=== PATIENT | female | born 1995 | race Caucasian/White ===

== ENCOUNTER 2016-12-06 17:24 | Emergency (ER) | payer BC, OTHER ==
[2016-12-06 17:39] VITALS: BP 130/72
--- NOTE | 2016-12-06 17:54 | UC ---
UC General HPI - HPI Summary HPI Summary: complaint of rash on the inside of her thighs that started approx 2 weeks they have worsened since then more painful and filled with pus draining them left nipple peircing has been more painful and leaking pus this morning denies fever , dyuria , vaginal discharge - History of Current Complaint Chief Complaint: UCSkin Stated Complaint: SKIN CONCERN Time Seen by Provider: 12/06/16 17:46 Hx Obtained From: Patient - Allergy/Home Medications Allergies/Adverse Reactions: Allergies Allergy/AdvReac Type Severity Reaction Status Date / Time Bee Venom Allergy Anaphylatic Verified 12/06/16 17:39 Shock PMH/Surg Hx/FS Hx/Imm Hx Previously Healthy: Yes - Surgical History Surgical History: Yes Surgery Procedure, Year, and Place: &A, 2000 - Family History Known Family History: Negative: Cardiac Disease, Hypertension, Diabetes - Social History Occupation: Student Alcohol Use: Occasionally Substance Use Type: None Smoking Status (MU): Never Smoked Tobacco Review of Systems Constitutional: Negative Skin: Rash Eyes: Negative ENT: Negative Respiratory: Negative Cardiovascular: Negative Gastrointestinal: Negative Genitourinary: Negative Motor: Negative Neurovascular: Negative Musculoskeletal: Negative Neurological: Negative Psychological: Negative All Other Systems Reviewed And Are Negative: Yes Physical Exam Triage Information Reviewed: Yes Appearance: No Pain Distress, Well-Nourished, Obese Vital Signs: Initial Vital Signs Temp 98.9 F 12/06/16 17:30 Pulse 87 12/06/16 17:30 Resp 16 12/06/16 17:30 BP 130/72 12/06/16 17:30 Pulse Ox 100 12/06/16 17:30 Vital Signs Reviewed: Yes Eyes: Positive: Conjunctiva Clear ENT: Positive: Pharynx normal, TMs normal. Negative: Nasal congestion Neck: Positive: No Lymphadenopathy Respiratory: Positive: Lungs clear, Normal breath sounds, No respiratory distress Cardiovascular: Positive: RRR, No Murmur, Pulses Normal Abdomen Description: Positive: Nontender, Soft, Distended Bowel Sounds: Positive: Present Musculoskeletal: Positive: No Edema Neurological: Positive: Alert Psychological Exam: Normal Skin Exam: Other - skin- inside of thighs with several pustules surrounding hair follicles left nipple area of erythema on inferior side of peicring - no induration scattered acne on face Course/Dx - Course Course Of Treatment: exam cmpleted. will treat for folliculitis with bactri and bactroban. culture obtained - Differential Dx - Multi-Symptom Provider Diagnoses: folliculitis Discharge - Discharge Plan Condition: Stable Disposition: HOME Prescriptions: Mupirocin 2% OINT* [Bactroban 2 % Oint*] 1 applic TOPICAL BID #1 tube Sulfamethox/Trimethoprim DS* [Bactrim DS 800/160 TAB*] 1 tab PO BID #14 tab Patient Education Materials: Folliculitis (ED) Referrals: Non Staff,Doctor [Primary Care Provider] - [facility] [place] [facility] [Outside] Additional Instructions: Please take antibiotic as directed. use bactroban on any areas of redness Increase fluids and rest Take acetaminophen for pain Please review your discharge instructions. . If your symptoms do not improve please call your primary care provider or return to urgent care
== END 2016-12-06 18:11 | disposition home or self-care (01) ==
LOC: UCCORT 17:24
DX: L73.9 Follicular disorder, unspecified (principal); E66.9 Obesity, unspecified
CPT/HCPCS: 87070; 87077; 87186; 87205; 87640; 87641; 99212; G0463